=== PATIENT | female | born 1980 | race Caucasian/White ===

== ENCOUNTER → 2016-12-27 | Outpatient (CLI) | payer BC ==
[~2016-12-27] MED LIST: FERR1TAB23; PRENTAB26 PO
--- NOTE | 2016-12-27 12:38 | MAMMOGRAPHY REPORT ---
BILATERAL DIGITAL DIAGNOSTIC MAMMOGRAM TOMOSYNTHESIS WITH CAD AND TARGETED LEFT ULTRASOUND: 12/27/2016 CLINICAL HISTORY: 36-year-old woman who noted a lump in the 12:00 left breast for the past 3 years. This was previously ultrasounded and yielded a cyst. She still feels the lump today but thinks that there is a change in the tissues surrounding the lump which feel denser and heavier and also reports a tingling sensation. Family history of breast cancer = maternal aunt and maternal first cousin. TECHNIQUE: Bilateral breast tomosynthesis in addition to standard 2D mammography was performed. Curre nt study was also evaluated with a Computer Aided Detection (CAD) system. COMPARISON: Comparison is made to exam dated: 01/24/2014 ultrasound - [facility]. BREAST COMPOSITION: The tissue of both breasts is heterogeneously dense, which may obscure small mas ses. FINDINGS: A triangular palpable marker overlies the 12:00 anterior left breast. Near the palpable ma rker, best seen on the CC view is a well-defined thin rimmed lucent centered 8.4 mm oil cyst, which l ikely correlates with the palpable lump described by the patient. No other suspicious mass, architec tural distortion or cluster of microcalcifications is seen bilaterally. Targeted ultrasound was performed in the area of palpable lump in the surrounding tissues in the left breast 11:00 through 2:00 axes. The palpable lump is located in the 12:00 axis, 1 cm from the nippl e. In this location, there is a well-defined, circumscribed hypoechoic to anechoic subdermal mass me asuring 8.0 x 6.4 x 7.8 mm. This likely correlates with the mammographic oil cyst and is benign. Ad ditionally, this was previously imaged on 01/24/2014 and measured 9.0 x 7.2 x 12.0 mm. Throughout th e remainder of the 12:00 axis, the 11:00, 1:00 and 2:00 axes of the left breast, normal fibroglandula r tissue is seen without a suspicious solid or cystic mass. IMPRESSION: ACR BI-RADS CATEGORY 2: BENIGN, TARGETED ULTRASOUND ACR BI-RADS CATEGORY 2: BENIGN 1. There is a benign oil cyst measuring 8 mm in the 12:00 left breast, 1 cm from the nipple, correla ting with the palpable lump pointed out by the patient, which she has felt for 3 years. 2. No suspicious mammographic or sonographic abnormality to explain the denser and heavier tissues s urrounding the lump in the superior left breast. Therefore, clinical follow-up is recommended, as bi opsy of a clinically suspicious mass should not be precluded by negative imaging. 3. No mammographic evidence of malignancy in the right breast. Approximately 10% of breast cancers are not detected with mammography. A negative mammographic report should not delay biopsy if a clinically suggestive mass is present. Marie Myers M.D. ay/:12/27/2016 09:20:18 [employer] Carpenter: Jerrica Vo, [facility] letter sent: Normal 1/2 BI-RADS Code: ACR BI-RADS Category 2: Benign Ultrasound BI-RADS: ACR BI-RADS Category 2: Benign
== END | disposition home or self-care (01) ==
LOC: C.MAMM 08:31
PROVIDERS: ATTEND Physician Assistant
DX: N60.02 Solitary cyst of left breast (principal)

== ENCOUNTER → 2017-06-20 | Outpatient (CLI) | payer OTHER ==
[~2017-06-20] MED LIST changes: -FERR1TAB23; +MULT-506 PO; +OMEG10007 PO; -PRENTAB26 PO
[2017-06-20 10:49] LABS: BASO % 0.2 %; BASO ABS # 0.01 K/uL (0-0.2); EOS % 1.3 %; EOS ABS # 0.06 K/uL (0-0.5); HEMATOCRIT 38.9 % (37-47); HEMOGLOBIN 13.3 g/dL (12.0-16.0); LYMPH % 40.3 %; LYMPH ABS # 1.89 K/uL (1.2-3.4); MEAN CELL VOLUME 94.2 fL (80-100); MEAN CORPUSCULAR HEMOGLOBIN 32.2 pg (25-34); MEAN CORPUSCULAR HGB CONC 34.2 g/dl (32-36); MEAN PLATELET VOLUME 10.3 fL (7.4-10.4); MONO % 7.5 %; MONO ABS # 0.35 K/uL (0.11-0.59); NEUT % 50.7 %; NEUT ABS # 2.38 K/uL (1.4-6.5); PLATELET COUNT 214 K/uL (130-400); RED CELL DISTRIBUTION WIDTH CV 12.7 % (11.5-14.5); RED CELL DISTRIBUTION WIDTH SD 43.8 fL (36.4-46.3); WHITE BLOOD COUNT 4.69 K/uL (4.8-10.8)
[2017-06-20 11:01] LABS: ALBUMIN 4.3 gm/dl (3.4-5.0); ALT/SGPT 29 U/L (12-78); BLOOD UREA NITROGEN 16 mg/dl (7-18); CALCIUM 9.1 mg/dl (8.5-10.1); CARBON DIOXIDE 30 mmol/L (21-32); CHOLESTEROL 200 mg/dl (0-200); CREATININE 0.91 mg/dl (0.60-1.20); GLUCOSE 88 mg/dl (70-99); POTASSIUM 3.6 mmol/L (3.5-5.1); SODIUM 136 mmol/L (136-145)
[2017-06-20 11:12] LABS: ALKALINE PHOSPHATASE 54 U/L (45-117); AST/SGOT 17 U/L (15-37); LDL CHOLESTEROL CALCULATED 99 mg/dl; TOTAL PROTEIN 7.8 gm/dl (6.4-8.2)
== END | disposition home or self-care (01) ==
LOC: C.LABBC 08:03
PROVIDERS: ATTEND Family Medicine
DX: Z01.812 Encounter for preprocedural laboratory examination (principal)

== ENCOUNTER → 2017-07-03 | Day surgery (SDC) | payer OTHER ==
[2017-05-26 11:13] VITALS: Ht 170.2 cm; Wt 58.2 kg
[~2017-07-03] VITALS: Ht 170.2 cm; Wt 58.2 kg
[~2017-07-03] MED LIST changes: +ACETAMINOPHEN/CODEINE 300/30MG TAB PO PRN; +ATROPINE SULFATE 0.1 MG/ML 5ML SYR IV PRN; +BUPIVACAINE 0.5 % 5 MG/1 ML MPF 30ML VIAL ONE; +EpHEDrine SULFATE INJ 50 MG/ML AMP IV PRN; +FENTANYL CITRATE INJ 50 MCG/1 ML 2 ML VIAL IV PRN; +FENTANYL CITRATE INJ 50 MCG/1 ML 2 ML VIAL ONE; +HYDR-5688 PO; +LACTATED RINGER'S 1000ML 1,000 ML IV SCH; +LIDOCAINE HCL 2% 2 ML VIAL (20MG/ML) ONE; +LIDOCAINE/EPINEPHRINE 1% 20 ML VIAL ONE; +MIDAZOLAM HCL 1 MG/ML 2ML VIAL ONE; +ONDANSETRON INJ 2 MG/ML 2 ML VIAL IV PRN; +PROPOFOL IV EMULSION 10 MG/ML 20 ML VIAL IV ONE; +SILVER SULFADIAZINE 1% CR 50 GM JAR EXT ONE; +SODIUM CHLORIDE 0.9% 1000ML 1,000 ML IV SCH
--- NOTE | 2017-07-03 12:58 | History & Physical Bridge - SC ---
H&P Re-Evaluation Bridge Note: I have examined the patient, reviewed the History & Physical and in the interval since the performance of the History & Physical I have noted the following changes of clinical significance: Co2 laser excision RIGHT foot plantar verruca
--- NOTE | 2017-07-03 14:12 | [facility] Post Operative Brief Note ---
Immediate Operative Summary Operative Date Jul 03, 2017. Pre-Operative Diagnosis Right foot painful plantar verruca Post-Operative Diagnosis Same as pre-op Procedure(s) Performed CO2 laser excision right foot plantar verruca Surgeon Dr. Kieran Garibay Chief Of Field Operations Surgeon(s) None Estimated Blood Loss 5 mL Findings Consistent with Post-Op Diagnosis Specimens Right foot plantar verruca Drains None Anesthesia Type MAC Complication(s) none Disposition Accompanied Pt To Recovery: no Disposition: Recovery Room / PACU
--- NOTE | 2017-07-03 14:14 | Discharge Instructions-SurgCtr ---
Discharge Instructions Date of Service Jul 03, 2017. Visit Reason for Visit: Plantar Wart, Pain Discharge Discharge Diagnosis / Problem: Painful plantar verruca right foot Discharge Goals Goal(s): Decrease discomfort, Improve function Activity Recommendations Activity Limitations: as noted below May weight bear as tolerated. Limit weight bearing. Ice, rest, elevate. Anesthesia . Post Anesthesia Instructions: If you have had General Anesthesia or IV Sedation: * Do not drive today. * Resume driving when surgeon permits. * Do not make important decisions or sign legal documents today. * Call surgeon for: 1. Temperature elevations greater than 101 degrees F. 2. Uncontrollable pain. 3. Excessive bleeding. 4. Persistent nausea and vomiting. 5. Medication intolerance (nausea, vomiting or rash). * For nausea and vomiting use only clear liquids such as: tea, soda, bouillon until nausea subsides, then gradually increase diet as tolerated. * If you have any concerns or questions, call your surgeon's office. If physician is unavailable and it is an emergency, call 911 or go to the nearest emergency room. . Diet Recommendations Home Diet: resume previous diet Procedures Procedures Performed: CO2 laser excision right foot plantar verruca Pending Studies Studies pending at discharge: no Medical Emergencies . Who to Call and When: Medical Emergencies: If at any time you feel your situation is an emergency, please call 911 immediately. . Non-Emergent Contact Non-Emergency issues call your: Primary Care Provider . . "Provider Documentation" section prepared by Kieran Garibay. .
[2017-07-03 14:16] VITALS: TEMP 36.3
[2017-07-03 14:46] VITALS: BP 100/64; PULSE 70; O2SAT 100
--- NOTE | 2017-07-03 14:50 | Anesthesia Progress Nt - [facility] ---
Anesthesia Post Op Note Date & Time Jul 03, 2017 at 14:50 Vital Signs Pain Intensity: 0 Vital Signs Past 12 Hours Date Time Temp Pulse Resp B/P (MAP) Pulse Ox O2 Delivery O2 Flow Rate FiO2 07/03/17 14:46 70 16 100/64 (76) 100 Room Air 07/03/17 14:16 36.3 81 16 114/74 (87) 100 Room Air 07/03/17 12:24 36.6 88 20 111/73 (86) 100 Room Air Notes Mental Status: alert / awake / arousable, participated in evaluation Pt Amnestic to Procedure: Yes Nausea / Vomiting: adequately controlled Pain: adequately controlled Airway Patency, RR, SpO2: stable & adequate BP & HR: stable & adequate Hydration State: stable & adequate Anesthetic Complications: no major complications apparent
--- NOTE | 2017-07-03 15:04 | [facility] Operative Report ---
Operative Report Operative Date Jul 03, 2017. Pre-Operative Diagnosis Right foot painful plantar verruca Post-Operative Diagnosis Same as pre-op Procedure(s) Performed CO2 laser excision right foot plantar verruca Surgeon Dr. Kieran Garibay [employer] Surgeon(s) None Estimated Blood Loss 5 mL Findings Lesion demonstrates obstruction of normal skin lines, with capillary budding. Specimens Right foot plantar verruca Drains None Anesthesia Type MAC Complication(s) none Disposition no Recovery Room / PACU Indications This is a pleasant 36 year old adult female who presented to the office with the chief complaint of painful verruca to her plantar right foot. Patient has been treated in the office by my colleague who attempted acid therapy and surgical excision, both of which have failed. Patient requests CO2 laser excision of plantar verruca today. The perioperative indications, planned procedure, possible benefits, risks, complications, and anticipated healing time and management were discussed in detail with the patient. She understands and elects to proceed with surgery at this time. All consents have been signed. No guarantees were made. All questions have been answered to the patient's satisfaction. Medical clearance has been obtained by the patients primary care physician. Description of Procedure Under mild sedation the patient was brought into the Operating Room and placed on the Operating Room table in the supine position. Final verification of the patient, surgery, and limb designation was performed via the time-out procedure. IV local sedation was then initiated by the anesthesia team. Local block was then administered to the operative site of the right foot consisting of 7cc of 1% lidocaine with epinephrine. The right foot was then scrubbed, prepped, and draped in the usual aseptic manner. Attention was then directed to the plantar verruca to right foot in area of sub- 5th metatarsal styloid process. Lesion was sharply excised using a #10 blade without penetrating the dermis. Lesion measured approximately 0.5cm x 0.5cm x 0.3 cm. This was sent to pathology for gross histopathological specimen. At this time, using the CO2 laser, any remaining verrucous cells were cauterized and excised. A 2mm clear margin was obtained surrounding verruca. At this time, a post-operative dressing consisting of silvadene, telfa, 4x4 gauze, and an melissa wrap were applied. The patient tolerated the procedure and anesthesia well and was transferred to the Recovery Room with vital signs stable and vascular status intact. Following a period of postoperative monitoring, the patient will be discharged home with written and postoperative instructions. Patient's intraoperative and postoperative disposition was discussed with the family in the postoperative consultation area. I attest to the content of the Intraoperative Record and any orders documented therein. Any exceptions are noted below.
== END | disposition home or self-care (01) ==
LOC: X.SURG 12:05
PROVIDERS: ATTEND Podiatrist Foot & Ankle Surgery
DX: B07.9 Viral wart, unspecified (principal); Z90.89 Acquired absence of other organs; Z98.890 Other specified postprocedural states

== ENCOUNTER → 2017-08-14 | Outpatient (CLI) | payer OTHER ==
[~2017-08-14] MED LIST changes: -ACETAMINOPHEN/CODEINE 300/30MG TAB PO PRN; -ATROPINE SULFATE 0.1 MG/ML 5ML SYR IV PRN; -BUPIVACAINE 0.5 % 5 MG/1 ML MPF 30ML VIAL ONE; -EpHEDrine SULFATE INJ 50 MG/ML AMP IV PRN; -FENTANYL CITRATE INJ 50 MCG/1 ML 2 ML VIAL IV PRN; -FENTANYL CITRATE INJ 50 MCG/1 ML 2 ML VIAL ONE; -HYDR-5688 PO; -LACTATED RINGER'S 1000ML 1,000 ML IV SCH; -LIDOCAINE HCL 2% 2 ML VIAL (20MG/ML) ONE; -LIDOCAINE/EPINEPHRINE 1% 20 ML VIAL ONE; -MIDAZOLAM HCL 1 MG/ML 2ML VIAL ONE; -ONDANSETRON INJ 2 MG/ML 2 ML VIAL IV PRN; -PROPOFOL IV EMULSION 10 MG/ML 20 ML VIAL IV ONE; -SILVER SULFADIAZINE 1% CR 50 GM JAR EXT ONE; -SODIUM CHLORIDE 0.9% 1000ML 1,000 ML IV SCH
[2017-08-14 11:18] LABS: BASO % 0.5 %; BASO ABS # 0.02 K/uL (0-0.2); EOS % 1.4 %; EOS ABS # 0.06 K/uL (0-0.5); HEMATOCRIT 37.8 % (37-47); HEMOGLOBIN 12.5 g/dL (12.0-16.0); IG# 0.01 K/uL (0.00-0.02); LYMPH ABS # 1.22 K/uL (1.2-3.4); MEAN CORPUSCULAR HEMOGLOBIN 31.4 pg (25-34); MEAN CORPUSCULAR HGB CONC 33.1 g/dl (32-36); MEAN PLATELET VOLUME 10.2 fL (7.4-10.4); MONO % 7.8 %; MONO ABS # 0.33 K/uL (0.11-0.59); NEUT % 61.1 %; NEUT ABS # 2.57 K/uL (1.4-6.5); PLATELET COUNT 196 K/uL (130-400); RED CELL DISTRIBUTION WIDTH CV 12.7 % (11.5-14.5); RED CELL DISTRIBUTION WIDTH SD 44.3 fL (36.4-46.3); WHITE BLOOD COUNT 4.21 K/uL (4.8-10.8)
[2017-08-14 11:39] LABS: ALBUMIN 4.2 gm/dl (3.4-5.0); ALT/SGPT 28 U/L (12-78); AST/SGOT 19 U/L (15-37); BLOOD UREA NITROGEN 18 mg/dl (7-18); CARBON DIOXIDE 29 mmol/L (21-32); CREATININE 0.83 mg/dl (0.60-1.20); GLUCOSE 80 mg/dl (70-99); POTASSIUM 3.9 mmol/L (3.5-5.1); SODIUM 135 mmol/L (136-145)
[2017-08-14 11:42] LABS: ALKALINE PHOSPHATASE 55 U/L (45-117); TOTAL PROTEIN 7.4 gm/dl (6.4-8.2)
== END | disposition home or self-care (01) ==
LOC: C.LABBC 07:54
PROVIDERS: ATTEND Family Medicine
DX: E55.9 Vitamin D deficiency, unspecified (principal); R94.5 Abnormal results of liver function studies; D72.819 Decreased white blood cell count, unspecified

== ENCOUNTER → 2017-08-30 | Outpatient (CLI) | payer OTHER ==
--- NOTE | 2017-08-30 09:13 | DIAGNOSTIC IMAGING REPORT ---
ABDOMEN COMPLETE (US) CLINICAL HISTORY: 36 years-old Female with ABN LIVER FUNCTION STUDY. Elevated LFTs TECHNIQUE: Multiple real time sonographic images of the abdomen were obtained assessing hopkins-scale appearance. FINDINGS: PANCREAS: The pancreas is partially obscured by bowel gas. The visualized portions of the pancreas are normal without focal lesion or pancreatic duct dilatation. LIVER: The liver demonstrates a homogeneous parenchymal echotexture. There is no intrahepatic bile duct dilation, focal lesion, or contour nodularity. There is no ascites. GALLBLADDER: The gallbladder is fluid-filled without cholelithiasis, wall thickening, or pericholecystic fluid. Negative sonographic Conti's sign. The common bile duct measures 0.4 cm. RIGHT KIDNEY: The right kidney measures 10.7 cm. The parenchymal echotexture and cortical thickness are normal. No nephrolithiasis or hydronephrosis. LEFT KIDNEY: The left kidney measures 11.7 cm. The parenchymal echotexture and cortical thickness are normal. No nephrolithiasis or hydronephrosis. SPLEEN: The spleen measures 9.0 cm and is normal in echotexture. No focal lesions are identified. VASCULATURE: The visualized aorta and inferior vena cava are sub-visualized although appear normal as seen. IMPRESSION: Unremarkable abdominal ultrasound. The above report was generated using voice recognition software. It may contain grammatical, syntax or spelling errors. Electronically signed by: Tobias Briscoe M.D. 08/30/2017 9:12 AM Dictated Date/Time: 08/30/2017 9:07 AM
== END | disposition home or self-care (01) ==
LOC: C.ULTR 08:05
PROVIDERS: ATTEND Family Medicine
DX: R94.5 Abnormal results of liver function studies (principal)